=== PATIENT | male | born 1940 | race Caucasian/White ===

== ENCOUNTER 2023-06-21 11:16 | Observation (INO) | payer MEDICARE, SELFPAY ==
[2023-06-21] VITALS (11 sets, daily range): BP systolic 130–177; BP diastolic 59–128; PULSE 57–80; RESP 12–18; TEMP 36.4–36.7; O2SAT 93–98; BMI 30.2; BMI 30.3
[2023-06-21] MEDS: Lactated Ringers 1,000 ML 15 ML IV (10:03)
[2023-06-21 10:40] LABS: Bedside Glucose 118 mg/dL (74-106)
--- NOTE | 2023-06-21 10:42 | PCM.HP.STD ---
HPI - General General Date of Admission: 06/21/23 Chief Complaint: BPH with obstruction HPI Narrative MICHELINE KEITA, is a 83 M who presents for transurethral resection of the prostate [facility] Medical History (Updated 06/12/23 @ 11:37 by Claudia Cox) Ambulates with cane Arthritis Cardiology follow-up encounter Diabetes Mckenzie catheter in place Hard of hearing History of CHF (congestive heart failure) History of echocardiogram History of edema History of irregular heartbeat History of stress test Hypertension Kidney stones Non-smoker Wears glasses Home Medications amiodarone 200 mg tablet 200 mg PO DAILY 06/12/23 [History Last Taken 06/21/23] ascorbic acid (vitamin C) 1,000 mg tablet,extended release (C Complex) 1,000 mg PO DAILY 06/12/23 [History Last Taken 06/20/23] bumetanide 1 mg tablet 0.5 mg PO DAILY 06/12/23 [History Last Taken 06/20/23] cholecalciferol (vitamin D3) 50 mcg (2,000 unit) capsule (Vitamin D3) 2,000 unit PO DAILY 06/12/23 [History Last Taken 06/20/23] cyanocobalamin (vitamin B-12) 1,000 mcg tablet,extended release (Vitamin B-12 ER) 1,000 mcg PO DAILY 06/12/23 [History Last Taken 06/20/23] empagliflozin 10 mg tablet (Jardiance) 10 mg PO DAILY 06/12/23 [History Last Taken 06/20/23] magnesium 100 mg capsule 400 mg PO QHS 06/12/23 [History Last Taken 06/20/23] metoprolol succinate 50 mg tablet,extended release 24 hr (Toprol XL) 50 mg PO BID 06/12/23 [History Last Taken 06/21/23] potassium chloride 10 mEq oral packet 10 meq PO DAILY 06/12/23 [History Last Taken 06/20/23] sacubitril 24 mg-valsartan 26 mg tablet (Entresto) 0.5 tab PO BID 06/12/23 [History Last Taken 06/21/23] spironolactone 25 mg tablet (Aldactone) 12.5 mg PO DAILY 06/12/23 [History Last Taken 06/20/23] terazosin 2 mg capsule 2 mg PO DAILY 06/12/23 [History Last Taken 06/21/23] zinc 50 mg tablet 50 mg PO DAILY 06/12/23 [History Last Taken 06/20/23] apixaban 5 mg tablet (Eliquis) 5 mg PO BID 06/21/23 [History Last Taken Unknown] Allergy/AdvReac Type Severity Reaction Status Date / Time No Known Allergies Allergy Verified 06/21/23 10:04 Surgical History (Updated 06/12/23 @ 11:32 by Claudia Cox) Hx of hernia repair Social History Smoking Status: Never smoker Vital Signs Vital Signs Vital Signs: 06/21/23 10:09 06/21/23 10:09 Temperature 97.7 F L Temperature Source Temporal Pulse Rate 57 L Respiratory Rate 18 Respiratory Pattern Normal Blood Pressure 156/71 H Blood Pressure Mean 99 Blood Pressure Source Monitor Blood Pressure Position Semi-Fowlers Blood Pressure Location Left Arm Pulse Ox 98 Oxygen Delivery Method Room Air Weight Weight: 87.7 kg Body Mass Index (BMI) 30.2 Results Lab / Micro Data Labs: Laboratory Results - last 24 hr 06/21/23 09:55: POC Glucose 118 H
[2023-06-21] MEDS: Cefazolin 2 GM in 0.9% Normal Saline (100mL Bag) 100 ML IV (11:06)
--- NOTE | 2023-06-21 11:35 | PROS_PTH ---
PATHOLOGY RESULTS PATIENT: MICHELINE KEITA LOC: MS3 U#:[id number] AGE/SX: 83/M [place]OM[place] [facility] [place]: Dr. Gonzalez Navarro MD : [id number] BED: 1 DIS: 06/22/2023 SPEC #: [id number] RECD: 06/21/23 14:01 STATUS: REBECCA COVARRUBIASDeann #: [id number] KALE: 06/21/23 11:[address]: Gonzalez Navarro DEPT: SURGICAL PATHOLOGY RECD BY: Shari Friend ENTERED: 06/24/23 09:36 SP TYPE: TURP OTHR DR: Dr. Kelley Garcia, DO LANCE BREWSTER, SWING RIDE OPERATOR-C Tissues: Prostate, NOS Procedures: Surgery Specimen Level IV HEADER OPERATION: Cysto, transurethral resection prostate with Olympus PRE-OP DIAGNOSIS: BPH with obstruction TISSUE SUBMITTED: Prostate tissue MICROSCOPIC DIAGNOSIS Prostate tissue, transurethral resection: Benign prostatic hyperplasia. HERMINIO:eliel 06/25/2023 MICROSCOPIC DESCRIPTION Slides are reviewed. GROSS DESCRIPTION Received is one container labeled with the patient's name and designated prostate tissue. The specimen consists of multiple irregular fragments of pink-case, rubbery, soft tissue that in aggregate weigh 4.7 gm and measure in aggregate 3.0 x 3.0 x 1.0 cm. The entire specimen is submitted in five cassettes. / HERMINIO:eliel 06/24/2023 TC:5 CPT: 41961
--- NOTE | 2023-06-21 11:58 | DCINST_ITS ---
Discharge Instructions Diet Discharge Diet: No restrictions Activity Discharge Activity: Return to Normal Activity and May Not Drive (while taking narcotic pain medications.) Dressing / Incision Call your doctor if you observe: Fever of 101 or Higher Follow Up Care Please Follow Up With: Gonzalez Navarro MD When: Call [phone] for an appointment Test Results: Test results from this visit will be discussed in further detail at your follow- up appointment, if applicable. Discharge Plan Admission Primary Reason for Your Visit: Transurethral section of prostate Attending Provider: Gonzalez Navarro Primary Care Provider: Kelley Garcia Consulting Providers: LANCE BREWSTER Discharge Orders/Prescriptions Prescriptions: Continued Jardiance 10 mg tablet 10 mg PO DAILY cholecalciferol (vitamin D3) [Vitamin D3] 50 mcg (2,000 unit) capsule 2,000 unit PO DAILY magnesium 100 mg capsule 400 mg PO QHS potassium chloride 10 mEq packet 10 meq PO DAILY C Complex 1,000 mg tablet extended release 1,000 mg PO DAILY zinc 50 mg tablet 50 mg PO DAILY Entresto 24-26 mg tablet 0.5 tab PO BID metoprolol succinate [Toprol XL] 50 mg tablet extended release 24 hr 50 mg PO BID bumetanide 1 mg tablet 0.5 mg PO DAILY spironolactone [Aldactone] 25 mg tablet 12.5 mg PO DAILY terazosin 2 mg capsule 2 mg PO DAILY cyanocobalamin (vitamin B-12) [Vitamin B-12] 1,000 mcg tablet extended release 1,000 mcg PO DAILY amiodarone 200 mg tablet 200 mg PO DAILY Held Eliquis 5 mg tablet 5 mg PO BID Hold Instructions: Resume on 07/05/23. Patient Comments: not yet started, will start Saturday06-24-23 Referrals / Follow Up: Gonzalez Navarro MD [Med Staff - Active Staff] - Kelley Garcia DO [Primary Care Provider] -
--- NOTE | 2023-06-21 11:58 | PCM.OPRPT ---
Report of Operation Date of Procedure: 06/21/23 Pre-Operative Diagnosis: BPH with urinary retention Post-Operative Diagnosis: The same Surgery/Procedure Performed:: Transurethral section of prostate Description of Surgical Findings:: Patient was taken back to the operating room, this is an 83-year-old male skilled nursing patient who is fairly inactive poor mobility who is developed urinary retention I spoke frankly to the patient's family preoperatively that the surgery could fail that he may not be able to urinate even if we do a TURP that he may still have bladder control problems and leakage and incontinence mostly due to his immobility and morbidity and other factors. He does have an obstructive prostate so can proceed with a TURP I hopes that we can restore somewhat normal voiding but again explained to the family that he may still have bladder control problems and incontinence even if he can restore normal voiding. Patient was taken back to the operating room at a smooth induction of anesthesia he was placed in dorsolithotomy position. The penis and testicles were prepped and draped in usual sterile fashion within the bladder with a 21 [place] rigid cystourethroscope I then inspected he had an obstructive prostate but short length bladder and any tumors inside the bladder I then came back in with a 26 [place] continuous-flow resectoscope identified the verumontanum marked is around at the 6:00 and 12 o'clock position I then resected the 12 o'clock position back to the room and then worked my way down the prostate on the 12:00 to the 9:00 and then finally 6 o'clock position and then went to the left side and resected the left lobe of the prostate once both lobes of the prostate was resected I then switched over to the button smooth out the resection and then used cauterization to cauterize extensively and obtain good hemostasis all the chips were Ellik out of the bladder I did a flow test he had a wide open flow I then went back in with a 24 [place] noncontinuous flow with the button and smooth out the resection the verumontanum was intact and identified the left and right ureter orifice were uninjured and then after obtaining hemostasis we placed a 22 [place] and continuous irrigation the urine was clear as anesthetic was reversed he is taken back to the PACU in good condition and will do a voiding trial tomorrow and see how he does. Surgeon: Gonzalez Navarro Type of Anesthesia: General Drains: 22fr Admit VTE Documentation VTE Present on Admission: No VTE Mechan Device Prophylaxis: SCD's VTE Pharm Prophylaxis ordered?: No
[2023-06-21 12:41] LABS: Bedside Glucose 112 mg/dL (74-106)
[2023-06-21] MEDS: Magnesium Chloride 64 MG Delay Rel.Tablet 128 MG PO (21:39)
[2023-06-21] MEDS: SACUBITRIL/VALSARTAN 24/26 MG TABLET 0.5 EACH PO (21:39)
[2023-06-21] MEDS: Metoprolol(XL)Succ 50 MG Tablet PO (21:39)
[2023-06-21] MEDS: Ciprofloxacin 400 MG/200 ML BAG 200 MG IV (21:39)
[2023-06-21] MEDS: Docusate Sodium 100 MG Capsule 200 MG PO (21:40)
[2023-06-22 00:52] VITALS: BP 150/76; PULSE 62; RESP 16; TEMP 36.6; O2SAT 97
[2023-06-22 05:22] VITALS: BP 172/87; PULSE 57; RESP 16; TEMP 36.6; O2SAT 97
[2023-06-22 07:58] VITALS: PULSE 67
[2023-06-22] MEDS: Ciprofloxacin 400 MG/200 ML BAG 200 MG IV (07:58)
[2023-06-22] MEDS: Metoprolol(XL)Succ 50 MG Tablet PO (07:58)
[2023-06-22] MEDS: Docusate Sodium 100 MG Capsule 200 MG PO (07:59)
[2023-06-22] MEDS: Bumetanide 0.5 MG Tablet PO (07:59)
[2023-06-22] MEDS: SACUBITRIL/VALSARTAN 24/26 MG TABLET 0.5 EACH PO (08:00)
[2023-06-22] MEDS: Amiodarone 200 MG Tablet PO (08:00)
[2023-06-22] MEDS: Potassium Chloride Oral Tablet 10 MEQ PO (08:01)
[2023-06-22] MEDS: Doxazosin 1 MG Tablet 2 MG PO (08:01)
[2023-06-22] MEDS: Empagliflozin 10 MG Tablet PO (08:01)
[2023-06-22] MEDS: Spironolactone 25 MG Tablet 12.5 MG PO (08:04)
--- NOTE | 2023-06-22 08:49 | PCM.PN.GU ---
Subjective Subjective Status post TURP urine is clear we can remove the catheter Hep-Lock IV fluids and patient can go home today after he is able to urinate, if he cannot urinate he will to go home with a catheter Objective Data Objective Data Vital Signs: Vital Signs Temp Pulse Resp BP Pulse Ox O2 Del Method 97.8 F 67 16 172/87 H 97 Room Air 06/22/23 05:22 06/22/23 07:58 06/22/23 05:22 06/22/23 05:22 06/22/23 05:22 06/22/23 05:22 Oxygen Delivery Method Room Air Weight: 87.7 kg Body Mass Index (BMI) 30.3 Intake & Output: Intake and Output for Last 24 Hours 06/20/23 06/21/23 06/22/23 23:59 23:59 23:59 Intake Total 2009 800 / 800 Output Total 950 / 950 Balance 1060 / 1060 800 / 800 Lab / Micro Data Labs: Laboratory Results - last 24 hr 06/21/23 09:55: POC Glucose 118 H 06/21/23 12:23: POC Glucose 112 H
[2023-06-22 10:19] VITALS: BP 148/82; PULSE 60; RESP 16; TEMP 36.9; O2SAT 98
[2023-06-22 14:40] VITALS: BP 132/58; PULSE 62; RESP 16; TEMP 36.8; O2SAT 98
== END 2023-06-22 14:43 | disposition home or self-care (01) ==
LOC: SDC 16:13 → MS3 16:13
PROVIDERS: Admitting Provider Urology; PCP Family Medicine; Referring Provider Urology; Visit Provider Urology
PROC: 0VT08ZZ Resection of Prostate, Via Natural or Artificial Opening Endoscopic (ICD-10-PCS; CPT 52601; principal; 2023-06-21 11:25)
DX: N40.1 Benign prostatic hyperplasia with lower urinary tract symptoms (principal); I11.0 Hypertensive heart disease with heart failure; I50.9 Heart failure, unspecified; E11.9 Type 2 diabetes mellitus without complications; Z79.84 Long term (current) use of oral hypoglycemic drugs; Z79.01 Long term (current) use of anticoagulants; N13.8 Other obstructive and reflux uropathy; R33.8 Other retention of urine; Z79.899 Other long term (current) drug therapy
CPT/HCPCS: 52601; 51702; 82962; 88305; 94668; 96365; 96366; 99221; 99252; J7120; G0378; G0463; J0744; J2405